=== PATIENT | male | born 1930 | race Caucasian/White ===

== ENCOUNTER 2017-08-31 16:59 | Inpatient (IN) | payer MEDICARE ==
[~2017-08-31] VITALS: Ht 188 cm; Wt 72.0 kg
[2017-08-31 18:16] VITALS: BP 111/67
--- NOTE | 2017-08-31 18:16 | NUR ---
Pt arrives via transport from [facility]. Delivered to room 202 via WC. 2:1 assist using walker to stand and pivot into bed. Pt [place], bilat hearing aids in ears. Pt reports having pain with cough and extended talking. Reports drinking ensure, any flavor, or 2 Marcus, at home. Noted to have 3rd spacing/edema to R elbow. L forearm with moderate bruising r/t lab draws prior to admit. Lungs CTA, abdomen soft, bowel sounds active x 4. Several family members at bedside with pt. Daughter, Gavi, KARLA, lives here in [place].
[2017-08-31 18:30] VITALS: BP 111/67
[2017-08-31 18:57] LABS: BUN/CREATININE RATIO 24.6 (6.0-26.0); CALCIUM 9.5 mg/dL (8.4-10.2); POTASSIUM 4.2 mmol/L (3.6-5.0); TOTAL BILIRUBIN 0.5 mg/dL (0.2-1.3); TOTAL PROTEIN 5.9 g/dL (6.3-8.2)
[2017-08-31 19:06] LABS: HEMATOCRIT 29.6 % (42.0-52.0); HEMOGLOBIN 9.7 g/dL (13.5-18.0); MEAN CELL VOLUME 96 fl (78-100); MEAN CORPUSCULAR HEMOGLOBIN 31 pg (27-31); MEAN CORPUSCULAR HGB CONC 33 g/dL (33-37); PLATELET COUNT 228 K/mm3 (130-400); RED CELL DISTRIBUTION WIDTH 15.1 % (11.5-14.5); WHITE BLOOD COUNT 7.8 K/mm3 (4.8-10.8)
[2017-08-31 19:15] LABS: MEAN PLATELET VOLUME 12.3 fl (7.4-10.4)
[2017-08-31 19:16] LABS: HYPOCHROMIA 2+; LYMPHOCYTE 13 % (20-51); MONOCYTE 12 % (3-10); NEUTROPHILS 70 % (42-75)
--- NOTE | 2017-08-31 19:45 | NUR ---
Report received from Sydnie CARRILLO. Patient resting supine in bed with HOB elevated. A/O x4. Denies pain except for throat "sore at times". Denies shortness of breath. States has productive cought of thick sputum "sometimes its yellow and sometimes its white". Assessment completed. Awaiting orders at this time. Bed alarm on. Call light in reach. Denies questions wants or needs.
--- NOTE | 2017-08-31 20:30 | NUR ---
Reviewed medications ordered with patient. Patient is very adament that he does not want to take the hospital substitution nebulizer tx for his Sybicort that he has here. Dr. Partida notified and cancels the nebulizer tx and orders the Sybicort. Patient also reports that besides having an eye gtt he gets an eye ointment at . Dr. Partida notified.
[2017-08-31 21:46] LABS: URINE APPEARANCE HAZY; URINE BILIRUBIN NEGATIVE (NEGATIVE); URINE BLOOD TRACE (NEGATIVE); URINE COLOR YELLOW; URINE GLUCOSE NEGATIVE (NEGATIVE); URINE KETONE NEGATIVE (NEGATIVE); URINE LEUKOCYTE ESTERASE 1+ (NEGATIVE); URINE NITRATE NEGATIVE (NEGATIVE); URINE PROTEIN(semi-quant) TRACE mg/dL (NEGATIVE); URINE UROBILINOGEN NORMAL (NORMAL); URINE WBC 16-30 /hpf (0-3)
[2017-09-01] MEDS ORDERED: SYMBICORT1 AE3 IH (00:11)
[2017-09-01] MEDS ORDERED: REFRESH TEARS15 ML OP (00:14)
[2017-09-01] MEDS ORDERED: ONGLYZA2.5 MG PO (00:15)
[2017-09-01] MEDS ORDERED: OMEPRAZOLE40 MG PO (00:18)
[2017-09-01] MEDS ORDERED: LOPRESSOR 225 MG/TAB PO (00:23)
[2017-09-01] MEDS ORDERED: AMIODARONE200 MG PO (00:26)
--- NOTE | 2017-09-01 00:52 | NUR ---
Rests with eyes closed. No signs of pain or distress. SCD's ordered for DVT prevention and applied earlier. Urine culture ordered, lab notified.
--- NOTE | 2017-09-01 03:34 | NUR ---
Rests with eyes closed. No signs of pain or distress.
[2017-09-01 06:12] VITALS: BP 96/54
--- NOTE | 2017-09-01 06:24 | NUR ---
Had rested well all night with no verbalization of pain. No signs of distress. Bed alarm on. Call light in reach. Call for use of urinal PRN. RESEARCH PROJECT MANAGER reports no incontinence issues.
--- NOTE | 2017-09-01 07:10 | NUR ---
Report to Julieta CARRILLO
--- NOTE | 2017-09-01 07:20 | NUR ---
Report received from Juan Collins, LUCIEN and care assumed. Pt resting in chair, no needs at this time. Call light in reach, chair alarm on.
--- NOTE | 2017-09-01 09:00 | NUR ---
Pt complains of right arm swelling that he feels is worse today then yesterday. Upon assessment, edema noted to right arm from forearm to shoulder. Educated pt on keeping arm elevated on pillows to help decrease swelling. Dr. Partida notified of pt's complaints.
[2017-09-01 10:48] VITALS: BP 107/56; BP 96/62
--- NOTE | 2017-09-01 10:50 | NUR ---
Blood pressure checked multiple times this morning and values reported to Dr. Partida. Per Dr. Partida, hold Metoprolol AM dose at this time. Pt educated on vital signs and metoprolol changes.
--- NOTE | 2017-09-01 15:43 | NUR ---
Dr. Partida in pt's room and looks at pt's right arm. Pt states he feels like it is becoming more swollen this evening. Arm continues to be elevated with no further orders at this time.
[2017-09-01 18:16] VITALS: BP 105/59
--- NOTE | 2017-09-01 19:33 | NUR ---
PATIENT LAYING SUPINE IN BED WATCHING TV. SHIFT ASSESSMENT COMPLETED AT THIS TIME. PATIENT REPORTS PAIN 4/10 IN ABDOMEN AND BELLY, STATES A FEELING OF "FULLNESS." LUNGS ARE CTA, REPORTS COUGH WITH SCANT, CLEAR PRODUCTION. PATIENT ALSO REPORTS SHORTNESS OF BREATH WHILE AT REST. COCCYX IS REDDENED, BLANCHABLE, WILL PROVIDE BARRIER CREAM FOR COMFORT AND PROTECTION FROM BREAKDOWN. BILATERAL HEELS ARE REDDENED, ELEVATED WITH A PILLOW. RIGHT ARM IS EDEMATOUS AND ELEVATED WITH A PILLOW. TELE MONITORING CONTINUED WITH A READING OF NSR. PATIENT WITH NO NEEDS AT THIS TIME, INSTRUCTED TO CALL. CALL LIGHT WITHIN REACH AND BED ALARM ON.
--- NOTE | 2017-09-01 20:05 | NUR ---
Report given to Patricia Lorenzo RN and care transferred at this time. Pt resting in bed, no needs at this time.
[2017-09-02 05:53] VITALS: BP 85/49
--- NOTE | 2017-09-02 07:00 | NUR ---
Report from GERARDO Rendon.
--- NOTE | 2017-09-02 09:00 | NUR ---
Pt up in recliner at bedside. Pt refuses shower at this time. Denies any pain. Appears discouraged this am. Remains on clear liquids w/ po pills crushed.
--- NOTE | 2017-09-02 09:44 | NUR ---
Pt given AM medcications crushed and in water. Pt drinks with straw and has several coughing episodes and coughs up some sputum. Pt aware of techniques and reports that he knows to use straw and tuck his chin. Pt continues to have diffuclty swallowing and coughs after drinks. Pt then requets his "throat spray" for sore throat.
--- NOTE | 2017-09-02 10:00 | NUR ---
Pt has large formed stool this am. Assisted w/ pericare - no redness or breakdown noted. Ambulates w/ walker w/ somewhat unsteady gait at times to return to recliner. Pt reports he will walk later. Pt agreeable to shower in the next hour after resting. "Can I shave too?" Pt seems more interactive at this time and cooperative w/ am cares. Call light in reach.
--- NOTE | 2017-09-02 11:00 | NUR ---
Shower completed - pt doing most of shower and shave - assisted by WARDROBE SPECIALIST as needed. Pt resting in bed after shower. Denies further needs. bed alarm on and call light in reach. Tolerated activity fairly well.
[2017-09-02 11:09] VITALS: BP 94/50
--- NOTE | 2017-09-02 11:09 | NUR ---
BP recheck 94/50 w/ pulse 54. Pt asymptomatic at this time.
--- NOTE | 2017-09-02 13:30 | NUR ---
Eye gtts for dryness given per pt's request.
--- NOTE | 2017-09-02 14:27 | NUR ---
Dr. Partida notified of pt's low BP/pulse this am and of holding Metoprolol - see order to hold med if Pulse <60.
--- NOTE | 2017-09-02 14:29 | NUR ---
Dr. Partida notified of pt's request for ice cream - dr bolanos w/ pt receiving ice cream. Notified also of pt coughing w/ thin liquids. Pt to continue clear liquid diet.
--- NOTE | 2017-09-02 16:44 | NUR ---
Took prilosec granules in water - no coughing or choking - tucked chin well. Not very noticeable swelling in RUE - pt reports "swelling down a lot". C/o mild sore throat - spray given per request.
[2017-09-02 17:41] VITALS: BP 107/52
--- NOTE | 2017-09-02 18:54 | NUR ---
report to GERARDO Houston.
--- NOTE | 2017-09-02 19:20 | NUR ---
Nursing rounds done with Evie Knapp RN. Pt resting in bed, bed alarm on. Pt awake and a/o x 3. C/o of sore throat.
--- NOTE | 2017-09-02 20:15 | NUR ---
Resting in bed, bed alarm on. Awake and a/o x 3. Head of bed elevated. C/o's of sore throat. Sa02 93% on room air. Heart rate 56. Continues on tele-monitor. 2012 see shift assessment
--- NOTE | 2017-09-02 21:29 | NUR ---
phenaseptic given to pt, for c/o's of sore throat. Pt rated pain around 2-3 out 10.
--- NOTE | 2017-09-02 23:00 | NUR ---
Refused oral care and HS care. Bed alarm set. Resting in bed, with eyes closed even respirations.
--- NOTE | 2017-09-03 06:00 | NUR ---
Q hourly checks done. Bed alarm set. Eyes closed even respirations. Opens eyes when spoken too. No c/o's of pain or discomfort.
[2017-09-03 06:02] VITALS: BP 105/57
--- NOTE | 2017-09-03 07:40 | NUR ---
Report given to Luz Luna. RN
--- NOTE | 2017-09-03 07:45 | NUR ---
REPORT RECEIVED FROM GERARDO REDDY
--- NOTE | 2017-09-03 07:50 | NUR ---
PATIENT SITTING UP IN RECLINER FOR BREAKFAST. SHIFT ASSESSMENT COMPLETE. PATIENT ALERT AND ORIENTED X4. REPORTS HE FEELS "SO FAR OKAY" THIS MORNING. REPORTS THAT HE DIDN'T SLEEP WELL LAST NIGHT THAT HE JUST COULDN'T GET TO SLEEP. REPORTS THAT HIS THROAT IS SORE. RATES PAIN 4-5/10 WHEN COUGHING/TALKING. ABDOMEN SOFT AND ROUNDED. STATES "I FEEL FULL ALL THE TIME" REPORTS THAT HE HAS BEEN FEELING LIKE THIS SINCE HE WAS ADMITTED TO [facility] FOR GI BLEED. REPORTS HAVING SHORTNESS OF BREATH ALL THE TIME WHICH IS HIS BASELINE. REPORTS THAT BREATHING IS IMPROVED AFTER RECEIVING MORNING INHALER. PATIENT HAS +1 EDEMA TO BILAT LOWER EXT. PATIENT'S CALL LIGHT WITHIN REACH. CHAIR ALARM ON.
--- NOTE | 2017-09-03 08:45 | NUR ---
patient's 0900 metoprolol held per instructions to hold if heart rate less than 60. heart rate 58.
[2017-09-03 08:58] LABS: HEMATOCRIT 28.1 % (42.0-52.0); HEMOGLOBIN 8.8 g/dL (13.5-18.0); MEAN CELL VOLUME 97 fl (78-100); MEAN CORPUSCULAR HEMOGLOBIN 30 pg (27-31); MEAN CORPUSCULAR HGB CONC 31 g/dL (33-37); MEAN PLATELET VOLUME 11.6 fl (7.4-10.4); PLATELET COUNT 253 K/mm3 (130-400); RED BLOOD COUNT 2.89 M/mm3 (4.20-5.60); RED CELL DISTRIBUTION WIDTH 14.9 % (11.5-14.5)
--- NOTE | 2017-09-03 09:00 | NUR ---
PATIENT SITTING UP IN RECLINER. TOOK MORNING MEDICATIONS WITHOUT DIFFICULTY. NO COUGHING OR CHOKING NOTED. PATIENT'S CALL LIGHT WITHIN REACH. CHAIR ALARM ON.
[2017-09-03 09:21] LABS: LYMPHOCYTE 19 % (20-51); MONOCYTE 6 % (3-10); NEUTROPHILS 68 % (42-75)
--- NOTE | 2017-09-03 18:29 | NUR ---
patient assisted into bed from recliner. offered ensure before bedtime. refused. educated on instructions from truck driver supervisor ashley to have 6 ensure high proteins a day and if patient is able to tolerate additional ensure to have 3 ensure clears mixed childress. patient states "that's a lot to drink, it takes me awhile to drink those anyway and i'm gonna be so full" patient encouraged to try and drink what he could. call light within reach. bed alarm on.
[2017-09-03 18:55] VITALS: BP 100/55
--- NOTE | 2017-09-03 19:00 | NUR ---
Report received from Shayne Luna RN and care assumed at this time. Pt resting in bed, requests eye drops and mouth/throat spray. No further needs. Call light in reach, bed alarm on.
--- NOTE | 2017-09-03 19:07 | NUR ---
REPORT GIVEN TO GERARDO CAMPBELL
--- NOTE | 2017-09-03 22:10 | NUR ---
Report given to Juan Collins LPN.
--- NOTE | 2017-09-03 23:04 | NUR ---
Report received from Julieta CARRILLO. Patient rests on right side with bed alarm on. Call light in reach. SCD's on BLE. No signs of pain or distress.
[2017-09-04 06:27] VITALS: BP 102/54
--- NOTE | 2017-09-04 07:26 | NUR ---
Report to Agatha CARRILLO
--- NOTE | 2017-09-04 11:01 | NUR ---
Daughter Gavi called, reports that pt has hearing test scheduled on 09/21/17 @ 1300, to finalize disability ppw. States that they will have to start all ppw over if he is unable to complete this testing. Reports that family is willing to transport. Inform daughter that therapies, admin and physicians will have to make that decision based upon pt condition.
[2017-09-04 18:00] VITALS: BP 101/45
--- NOTE | 2017-09-04 19:40 | NUR ---
Report received from Agatha Garcia RN. Nursing rounds made with Agatha CARRILLO. Resting in bed, bed alarm on. Tele-monitor on. Oxygen on 2L/NC. Denies chest pain or SOB. Denies having any pain. Has productive cough. Sputum clear.
--- NOTE | 2017-09-04 21:08 | NUR ---
Aleta Pena APRN notified of blood sugar. No new orders.
--- NOTE | 2017-09-04 21:42 | NUR ---
Pt drank regular ensure for evening snack. No difficulty noted in swallowing.
--- NOTE | 2017-09-04 23:00 | NUR ---
Continues to be resting in bed, bed alarm on. Head of bed elevated. Awake and a/o x 3. No c/o's voiced. Drank 100mls of clear ensure. Has urinal at bed side.
--- NOTE | 2017-09-05 06:05 | NUR ---
Q hourly checks done. Bed alarm set. Resting in bed. Eyes closed even respirations. At 0520 Awake and a/o x 3. Blood sugar 137. Request throat spray for sore throat, unable to rate pain.
[2017-09-05 06:24] VITALS: BP 105/55
--- NOTE | 2017-09-05 07:15 | NUR ---
Report given to Agatha Garcia RN. Nursing rounds made.
--- NOTE | 2017-09-05 07:55 | NUR ---
Amanda Rodgers PA-C at bedside.
--- NOTE | 2017-09-05 17:00 | NUR ---
Patient sitting up in the chair. Denies pain, except for a sore throat. Evening medications crushed and administered in fluid. Protonix oral suspension administered with a small bite of apple sauce per orders. Full liquid meal tray provided. Patient begins coughing shortly after taking a drink of ensure clear. Patient states "I don't know if I will be able to get anything down." "That drink didn't go down the right way." Patient continues coughing and gagging. Coughs up clearish brown foamy sputum. Denies dizziness or shortness of breath. Denies needs or questions at this time. Fall precautions in place.
--- NOTE | 2017-09-05 18:15 | NUR ---
Amanda Daniels APRN notified of patients blood pressure.
[2017-09-05 18:55] VITALS: BP 80/50
--- NOTE | 2017-09-05 19:40 | NUR ---
Report received from Agatha CARRILLO. Patient sitting up in chair. A/O x4. Denies pain. States throat is "sore" and bottom is "sore" but has no pain. Has productive cough of thick white phelgm with drinking. Lungs CTA. HR Pete. PPP +1. No edema. Denies wants or needs at this time.
--- NOTE | 2017-09-06 01:36 | NUR ---
Rests with eyes closed. No signs of pain or distress. Bed alarm on. Call light in reach.
[2017-09-06 06:40] LABS: EOS # 0.3 (0.04-0.40); HEMOGLOBIN 8.8 g/dL (13.5-18.0); LYMPH# 1.4 (1.50-4.00); MEAN CELL VOLUME 96 fl (78-100); MEAN CORPUSCULAR HEMOGLOBIN 30 pg (27-31); MEAN CORPUSCULAR HGB CONC 31 g/dL (33-37); MEAN PLATELET VOLUME 11.5 fl (7.4-10.4); MONO # 0.6 (0.20-0.80); NEU # 2.3 (1.40-6.50); PLATELET COUNT 265 K/mm3 (130-400); RED BLOOD COUNT 2.92 M/mm3 (4.20-5.60); RED CELL DISTRIBUTION WIDTH 14.8 % (11.5-14.5); WHITE BLOOD COUNT 4.7 K/mm3 (4.8-10.8)
[2017-09-06 06:44] VITALS: BP 95/55
[2017-09-06 06:49] LABS: EOS % 6.9 % (0.0-4.0)
[2017-09-06 06:55] LABS: BUN/CREATININE RATIO 27.6 (6.0-26.0); CALCIUM 9.4 mg/dL (8.4-10.2); POTASSIUM 4.2 mmol/L (3.6-5.0)
--- NOTE | 2017-09-06 07:05 | NUR ---
REPORT RECEIVED FROM ANNELISE MCGRAW.
--- NOTE | 2017-09-06 07:25 | NUR ---
Rested well all shift. Took scheduled Protonix in 5 ML of applejuice. PRN eye gtts given per request. Report to Leanne CARRILLO.
--- NOTE | 2017-09-06 08:10 | NUR ---
AWAKE. SITTING IN CHAIR. PERSNICKETY. HAS A SORETHROAT. LUNG SOUNDS CTA; SLIGHTLY DIM IN BASES. PULSE IS 56 RADIALLY; WILL HOLD METOPROLOL. LE FREE OF EDEMA. UNABLE TO PALPATE PEDAL PULSES; AUDIBLE WITH DOPLER. CALL LIGHT IN REACH.
--- NOTE | 2017-09-06 08:45 | NUR ---
TOOK MEDICATION CRUSHED IN A SMALL BITE OF PUDDING WITHOUT DIFFICULTY.
--- NOTE | 2017-09-06 13:28 | NUR ---
RULA PA AT BEDSIDE WITH PATIENT.
--- NOTE | 2017-09-06 13:36 | NUR ---
Dr Neal's office has been notified that Attending, Niecy Rodgers, is requesting a f/u appointment for consult regarding pt's ability to have a MBS as recommended per ST - awaiting response at this time. Per pt's dtr, Gavi's request, VA eligibility rep, Dakota, is contacted, who states that the VA will not cover the 20% that [facility] does not cover in SWB after day 20, as it would be 2 Federal Agencies paying and that does not happen. Pt's recent Video Swallow or MBS and ST notes are requested from [place] and request faxed to [phone].
[2017-09-06 18:19] VITALS: BP 93/73
--- NOTE | 2017-09-06 19:00 | NUR ---
Report received from Leanne CARRILLO. Patient rests supine in bed with bed alarm on. A/O x4. Denies pain, except in his throat when he coughs then rates 4/10. Continues to have intermittent productive cough of productive white thick phelgm. Denies shortness of breath. Assesssment completed. Daughter visits. Advised of patient needing more clothing. States she will be bringing more on weekend as well as another Symbicort because Father's house is an hour away and she goes to his house on weekends.
--- NOTE | 2017-09-07 05:57 | NUR ---
Rested well all shift. Denies pain. Scheduled AM medications taken. PRN eye gtts given per request. Uses urinal through the night. Denies wants or needs. Bed alarm on. Call light in reach.
[2017-09-07 06:35] VITALS: BP 95/51
--- NOTE | 2017-09-07 07:13 | NUR ---
Report to Luz CARRILLO.
--- NOTE | 2017-09-07 07:20 | NUR ---
REPORT RECEIVED FROM ANNELISE SAN LPN
--- NOTE | 2017-09-07 07:50 | NUR ---
PATIENT LYING IN BED. SHIFT ASSESSMENT COMPLETE. PATIENT ALERT AND ORIENTED X4. PATIENT REPORTS THAT NIGHT WAS "NOT TOO BAD". WHEN ASKED IF HE WAS HAVING ANY PAIN STATES "A LITTLE IN MY THROAT IT'S WORSE WHEN I COUGH AND TALK" RATES PAIN 4-5/10. PATIENT OFFERED MOUTH SPRAY REFUSED AT THIS TIME STATES THAT HE WOULD PREFER TO USE IF AFTER EATING. DENIES SHORTNESS OF BREATH OR DIFFICULTIES BREATHING. HAS +1 EDEMA TO BILAT LOWER EXT. PATIENT'S CALL LIGHT WITHIN REACH. BED ALARM ON.
--- NOTE | 2017-09-07 09:30 | NUR ---
PATIENT'S HEART RATE 68-69. BLOOD PRESSURE THIS MORNING 95/51. PER CHRISTINE STILES PATIENT TO RECEIVE SCHEDULED METOPROLOL 12.5 MG.
[2017-09-07 11:45] LABS: PH-URINE 5.5 (5.0 - 8.0); URINE APPEARANCE CLEAR; URINE BILIRUBIN NEGATIVE (NEGATIVE); URINE BLOOD NEGATIVE (NEGATIVE); URINE COLOR YELLOW; URINE GLUCOSE NEGATIVE (NEGATIVE); URINE KETONE NEGATIVE (NEGATIVE); URINE LEUKOCYTE ESTERASE NEGATIVE (NEGATIVE); URINE NITRATE NEGATIVE (NEGATIVE); URINE PROTEIN(semi-quant) NEGATIVE (NEGATIVE); URINE UROBILINOGEN NORMAL (NORMAL); URINE WBC 0-1 /hpf (0-3)
--- NOTE | 2017-09-07 11:51 | NUR ---
MBS and ST notes obtained from 08-16-17, placed on pt chart and scanned and sent to Niecy Rodgers PA-C and [facility]. Dr Neal's nurse Elida returns call and states that she is not sure if Dr Neal will recommend a MBS or not and will check w/ him when he is back in the office on Sunday09-10-17. Niecy and Jeimy notified.
--- NOTE | 2017-09-07 17:26 | NUR ---
PATIENT TO HAVE NECTAR THICKENED LIQUIDS. RECEIVED CHICKEN BROTH ON DINNER TRAY. THIS NURSE ASKED PATIENT IF THE BROTH COULD BE THICKENED LIKE HIS WATER. PATIENT STATES " I HAVE A HARDER TIME SWALLOWING IT WHEN IT'S TOO THICK, I DON'T LIKE IT LIKE THAT IT DOESN'T CLINCH MY THIRST" PATIENT REFUSED TO THICKEN BROTH.
[2017-09-07 18:35] VITALS: BP 111/59
--- NOTE | 2017-09-07 19:10 | NUR ---
Report received from Ashley Velazco nursing staff development coordinator.
--- NOTE | 2017-09-07 19:17 | NUR ---
REPORT GIVEN TO GERARDO REDDY
--- NOTE | 2017-09-07 19:30 | NUR ---
Awake and a/o x 3. Resting in recliner with chair alarm on. Denies having any SOB, chest pain. States "my throat hurts when I speak or cough." Rated throat pain 4-5 out 10. See shift assessment.
--- NOTE | 2017-09-07 22:00 | NUR ---
Resting in bed, bed alarm set. Awake and a/o x 3, watching TV. Denies having any needs. No c/o's of pain voiced.
--- NOTE | 2017-09-08 00:17 | NUR ---
C/o of throat hurting. Requested throat spray. Given at this time. Unable to rate pain. States "its just sore."
[2017-09-08 06:02] VITALS: BP 103/55
--- NOTE | 2017-09-08 06:25 | NUR ---
Q hourly checks done. Bed alarm set. Call light with in reach of patient. Eyes have been closed even respirations. At 0600 pt awake and a/o x 3. C/o's of throat pain.
--- NOTE | 2017-09-08 07:32 | NUR ---
Report given to Sydnie Hernandez RN
--- NOTE | 2017-09-08 08:47 | NUR ---
Pt A&O, denies pain. Ate all pudding and yogurt off breakfast tray and is drinking 2CalHN at this time. Crushed and mixed PO meds with applesauce. Pt swallowed without difficulty.
[2017-09-08 18:42] VITALS: BP 119/76
[2017-09-09 06:32] VITALS: BP 109/62
--- NOTE | 2017-09-09 07:15 | NUR ---
report from Olga Lidia CARRILLO
--- NOTE | 2017-09-09 08:15 | NUR ---
up in chair at [facility], denies complaint, takes po meds crushed in applesauce without difficulty, talkative
[2017-09-09 18:16] VITALS: BP 111/66
--- NOTE | 2017-09-09 18:31 | NUR ---
patient currently in chair at bedside, twice today this patient has had difficulty with chocolate pudding, coughing and spitting a large amount, plan to stop giving chocolate pudding.
--- NOTE | 2017-09-09 19:17 | NUR ---
report to Nunu CARRILLO
--- NOTE | 2017-09-09 20:50 | NUR ---
PATIENT LAYING SUPINE IN BED. SHIFT ASSESSMENT COMPLETED AT THIS TIME. PATIENT A/O X4. RATING PAIN 3/10 IN STOMACH AND THROAT. LUNGS CTA, DENIES COUGH OR SHORTNESS OF BREATH. NO EDEMA NOTED. HEART RATE 58 BPM, METOPROLOL HELD. PATIENT REFUSES TO TAKE HIS COLACE WITH THIS MEDICATION PASS. PATIENT REQUESTING "SLEEPING PILL," HYDROXYZINE HCL, EYE OINTMENT, AND THROAT SPRAY LATER ON THIS EVENING. PATIENT WITH NO NEEDS AT THIS TIME. WILL CONTINUE TO MONITOR. CALL LIGHT WITHIN REACH AND BED ALARM ON.
[2017-09-10 06:21] VITALS: BP 101/59
--- NOTE | 2017-09-10 06:45 | NUR ---
Received report from GERARDO Eddy
--- NOTE | 2017-09-10 09:42 | NUR ---
Patient laying in bed when this nurse entered room. Alert and oriented to person, place and time. Patient is tolerable to this nurse during assessment. BLCTA uin upper, middle and lower lobes anterior and posterior. Bowel sounds noted in all four quadrants. No pain with deep and soft palpation. No massess or gaurding noted. Abdomen is soft and flat. Skin is warm, intact with no lessions noted. Coccyx does have blanchable, reddened area that is intact. Patient turned on right side while laying in bed. Bruising in bilateral hands that are in varying stages of healing. Patient continues on full liquid diet. BS 139 this morning. Will apply air mattress to bed. No lower edema noted. Patient is able to voice needs and denies pain at this time. Call light with in reach. Will continue to monitor.
--- NOTE | 2017-09-10 17:03 | NUR ---
Patient sitting in recliner at bedside waiting for supper. 1700 meds passed. Patient is able to voice his needs and call light with in reach. Will continue to monitor.
[2017-09-10 18:01] VITALS: BP 115/69
--- NOTE | 2017-09-10 18:17 | NUR ---
Dr Staton is notified that Dr Neal's nurse, Elida, has notified Dr Neal of recommendation re: repeat MBS, she states that Dr Neal says, it wouldn't hurt him, but he doesn't think he needs it and he has requested that his nurse discuss w/ family and pt and set him up with [facility] for esophageal stent placement. Elida will get back w/ [facility] re decision made and [facility] appointment is that is agreed upon. Dr Staton is also aware that this nurse discussed w/ family the possiblity of a family meeting and Gavi, dtr, cannot meet until after 4:30pm - she suggests a conference call if necessary. She will speak to pt about the possibility of needing LTC and she states she and her sister would prefer [facility] as they would be able to see pt more often.
--- NOTE | 2017-09-10 18:20 | NUR ---
all notes and other documentation reviewed that were entered by Sherrie student life coordinator
--- NOTE | 2017-09-10 18:36 | NUR ---
Report given to LUCIEN Jane.
--- NOTE | 2017-09-10 19:10 | NUR ---
Report received from Ashley CARRILLO. Patient sitting up in recliner. A/O x4. Denies pain except to throat when swallows, then 2/10. Reports still has cought at times with swallowing. Continues on nectar thick liquids. Assessment completed. Denies wants or needs. Reports having loose BM's. "from the applesauce they are giving me". Call light in reach.
--- NOTE | 2017-09-11 00:28 | NUR ---
Rings call light and requests eye lubricant, throat spray, and "sleep medication" Meclinzine. Requests granted. Denies pain except in throat 11/17. Remains a 2 hours turn. Denies further wants or needs. Telling jokes with this nurse. Bed alarm on. Call light in reach.
--- NOTE | 2017-09-11 06:38 | NUR ---
Rested well all night. Scheduled AM medication taken. PRN eye gtts given per request. Denies pain. Voids 150 ML of clear yellow urine in urinal. Bed alarm on. Call light in reach.
[2017-09-11 06:42] VITALS: BP 98/54
--- NOTE | 2017-09-11 06:45 | NUR ---
Received report from LUCIEN Jane.
--- NOTE | 2017-09-11 07:08 | NUR ---
Report to Ashley CARRILLO
--- NOTE | 2017-09-11 08:45 | NUR ---
PATIENT PROVIDED PEACHES ON BREAKFAST TRAY. PATIENT BEGAN COUGHING AND SPITTING UP AFTER EATING PEACHES. REPORTS THAT IT WAS THE PEACHES THAT CAUSED HIM TO START COUGHING AND SPITTING UP. REPORTS THAT THE PEACHES WERE STUCK. DOES NOT APPEAR TO BE IN ANY DISTRESS. DENIES ANY NEEDS FROM THE NURSE AT THIS TIME. STATES "I JUST NEED TO GET THIS CLEARED" PEACHES TAKEN FROM PATIENT.
[2017-09-11 09:17] LABS: EOS # 0.3 (0.04-0.40); EOS % 6.3 % (0.0-4.0); HEMATOCRIT 31.1 % (42.0-52.0); HEMOGLOBIN 9.6 g/dL (13.5-18.0); LYMPH# 1.2 (1.50-4.00); MEAN CELL VOLUME 99 fl (78-100); MEAN CORPUSCULAR HEMOGLOBIN 31 pg (27-31); MEAN CORPUSCULAR HGB CONC 31 g/dL (33-37); MONO # 0.6 (0.20-0.80); NEU # 3.2 (1.40-6.50); PLATELET COUNT 319 K/mm3 (130-400); RED BLOOD COUNT 3.14 M/mm3 (4.20-5.60); RED CELL DISTRIBUTION WIDTH 15.5 % (11.5-14.5); WHITE BLOOD COUNT 5.4 K/mm3 (4.8-10.8)
[2017-09-11 09:22] LABS: CALCIUM 9.3 mg/dL (8.4-10.2); POTASSIUM 4.7 mmol/L (3.6-5.0)
--- NOTE | 2017-09-11 09:30 | NUR ---
Patient refused Colace and Metoporol held this morning d/t pulse 58.
--- NOTE | 2017-09-11 10:10 | NUR ---
susan salcedo in with patient at this time.
--- NOTE | 2017-09-11 10:13 | NUR ---
Patient sitting in recliner chair when this nurse entered room. Patient is alert and oriented to person, place and time. Open to this nurse doing the assessment. BLCTA anterior and posterior. No pain with deep or soft palpation of the abdomen. No massess or gaurding noted. Bowel sounds noted in all four quadrants. Patient continues on a fluid diet. Patient was given peaches this morning during breakfast and did not tolerate this well. Pain of 2 on a scale of 0-10 on the nuemeric pain scale. Patient stated he has pain in his throat and only when he coughs. Skin in intact, dry and warm to touch. Pale in color. Discolored coccyx intact and is blancable. Pedal pulse present bilatearlly.
--- NOTE | 2017-09-11 10:30 | NUR ---
patient sitting up in recliner. patient reports that after having peaches this morning that he has not been able to swallow anything. patient reports that he has been spitting up everything. patient has cup that is half full of liquids he has spit up. patient reports that he's not throwing up but that he's more coughing up the liquids. when asked if he feels like he has something stuck in his throat or what is bothering him. patient points to epigastric area and states "i just feels like it's all stuck in there" patient denies shortness of breath or difficulties breathing. respirations even and unlabored. sp02 98% on room air. informed patient not to have anymore pudding or yogurt or peaches. kitchen called and notified.
--- NOTE | 2017-09-11 10:48 | NUR ---
susan salcedo in with patient at this time.
--- NOTE | 2017-09-11 12:30 | NUR ---
PATIENT GIVEN 2 OZ OF COCA PER CHRISTINE STILES'S ORDER. PATIENT REPORTS THAT HE FEELS THOUGH COKE HAS THINNED HIS SECRETIONS AND REPORTS THAT HE SPIT UP A COUPLE PIECES OF PEACH. PATIENT PROVDED AN ADDITIONAL 2 OZ COKE PER ORDER FROM CHRISTINE STILES. PATIENT TOLERATED WELL CONTINUES TO SPIT UP AFTER FLUID INTAKE BUT SEEMS TO BE DECREASING IN FREQUENCY AND AMOUNT.
--- NOTE | 2017-09-11 13:10 | NUR ---
PATIENT PROVIDED ADDITIONAL 2 OZ OF COKE PER ORDER. PATIENT REPORTS FEELING LIKE COKE HAS HELPED RELIEVE A LITTLE BIT OF ABDOMINAL PRESSURE. REPORTS THAT HE IS STILL FEELING A SMALL AMOUNT OF DISCOMFORT STATES "I JUST HAVE THIS GAS" REPORTS THAT HE FEELS LIKE COKE HAS HELPED THIN HIS SECRETIONS. THIS NURSE AND CHRISTINE STILES AT PATIENT'S BEDSIDE. PATIENT TOLERATED DRINKING WELL COUGHED A LITTLE AFTER DRINKING AND SPIT UP ONCE AFTER DRINKING 2OZ. CHRISTINE STILES ENCOURAGED PATIENT TO WALK IN HALLS. PATIENT REPORTS WANTING TO WAIT UNTIL THERAPY CAN WALK WITH HIM. PATIENT REQUESTED SPRITE. PER CHRISTINE STILES OKAY FOR PATIENT TO HAVE SPRITE.
--- NOTE | 2017-09-11 13:11 | NUR ---
Patient left facility at 1310 with all belongings via wheelchair to personal vehicle with .
--- NOTE | 2017-09-11 13:35 | NUR ---
PATIENT WALKING IN [place] WITH PHYSICAL THERAPY. MARY FROM THERAPY CALLED TO THIS NURSE FOR VITAL SIGNS MACHINE. PATIENT SITTING IN CHAIR IN HALLWAY. REPORTS THAT PATIENT WAS SPITTING UP LIQUIDS. MARY FROM PT REPORTS PATIENT'S HEART RATE WAS 136 AND SP02 82%. WHEN THIS NURSE ARRIVED TO PATIENT HEART RATE WAS 107 SP02 85%. RESPIRATIONS UNLABORED. DID NOT APPEAR TO BE IN ANY DISTRESS. PATIENT'S SP02 BACK UP TO 95% ON ROOM AIR AFTER APPROXIMATELY 1-2 MINUTES. PATIENT ESCORTED INTO WHEELCHAIR. ASSISTED BACK INTO BED WITH HEAD OF BED ELEVATED. SPO2 96% ON ROOM AIR ONCE IN BED HEART RATE 65. PATIENT REPORTS THAT HE DID FEEL SHORT OF BREATH WHILE WALKING. DENIES ANY DIZZINESS. PATIENT'S CALL LIGHT WITHIN REACH. BED ALARM ON. CHRISTINE STILES NOTIFIED.
[2017-09-11 13:40] VITALS: BP 110/64
--- NOTE | 2017-09-11 13:55 | NUR ---
CHRISTINE Pemberton at bedside at 1354.
--- NOTE | 2017-09-11 14:03 | NUR ---
Patient did not take Promode 30ml at 1400 d/t nausea.
--- NOTE | 2017-09-11 15:00 | NUR ---
Patient resting in bed in high fowlers position with IV on continous in the right forearm. Patient is able to voice needs and states that he wants to rest. Call light with in reach and will continue to monitor
--- NOTE | 2017-09-11 15:06 | NUR ---
PATIENT LYING IN BED EYES CLOSED WITH HEAD OF BED ELEVATED TO 35 DEGREES. PATIENT DOES NOT APPEAR TO BE IN ANY DISTRESS. NO COUGHING HEARD FROM ROOM FOR THE ROOM FOR APPROXIMATELY THE LAST HOUR. VITAL SIGNS WITHIN NORMAL LIMITS. CALL LIGHT WITHIN REACH. BED ALARM ON.
[2017-09-11 15:08] VITALS: BP 109/64
--- NOTE | 2017-09-11 16:45 | NUR ---
CHRISTINE Pemberton at bedside visiting with patient.
--- NOTE | 2017-09-11 16:49 | NUR ---
SPOKE WITH PATIENT'S DAUGHTER JEANNE. NOTIFIED OF [facility]S [facility]SF[facility]. DAUGHTER WILL TRY TO MAKE IT UP TO HOSPITAL PRIOR TO TRANSFER.
--- NOTE | 2017-09-11 16:58 | NUR ---
SPOKE WITH [facility] PT [facility]TER AT THIS TIME. PATIENT GOING TO ROOM 219 ICU ACCEPTING DOCTOR IS . NUMBER TO CALL REPORT [phone].
--- NOTE | 2017-09-11 17:15 | NUR ---
PATIENT'S CONSENT FOR TRANSFER SIGNED AT THIS TIME. THIS NURSE, PATIENT'S DAUGHTER JEANNE AND GERARDO FRY IN ROOM AT TIME OF CONSENT.
--- NOTE | 2017-09-11 17:17 | NUR ---
SPOKE WITH JOSHUA FROM EMS TO NOTIFY OF PATIENT'S TRANSFER AT THIS TIME.
[2017-09-11 17:19] VITALS: BP 107/58
--- NOTE | 2017-09-11 17:47 | NUR ---
PATIENT LEFT FACILITY VIA EMS FOR TRANSFER TO [facility] ICU ROOM 219. PATIENT'S CLOTHING AND WALLET SENT WITH DAUGHTER. TRANSFER PAPERS SENT WITH EMS.
--- NOTE | 2017-09-11 17:49 | NUR ---
REPORT GIVEN TO GERARDO GUARDADO AT [facility]. DENIES ANY QUESTIONS FOR THE NURSE AT THIS TIME. PATIENT'S HISTORY AND PHYSICAL AND MEDICATION LIST FAXED PER REQUEST.
[2017-10-04] MEDS ORDERED: FERROUS SU325 MG/TAB PO (14:14)
[2017-10-04] MEDS ORDERED: LEVEMIR FLEX100 U/ML SQ (14:17)
[2017-10-04] MEDS ORDERED: MEGESTROL AC40 MG/ML PO (14:18)
== END 2017-10-05 13:01 | disposition home health service (06) | DRG 948 ==
LOC: MED/SURG 16:59
PROVIDERS: Nurse Practitioner Family; Physician Assistant; ADMIT Family Medicine
DX: R53.81 Other malaise (principal); N39.0 Urinary tract infection, site not specified; E46 Unspecified protein-calorie malnutrition; N17.9 Acute kidney failure, unspecified; I13.0 Hypertensive heart and chronic kidney disease with heart failure and stage 1 through stage 4 chronic kidney disease, or unspecified chronic kidney disease; I50.9 Heart failure, unspecified; T18.128A Food in esophagus causing other injury, initial encounter; J44.9 Chronic obstructive pulmonary disease, unspecified; E03.9 Hypothyroidism, unspecified; E11.22 Type 2 diabetes mellitus with diabetic chronic kidney disease; N18.9 Chronic kidney disease, unspecified; I48.0 Paroxysmal atrial fibrillation; B96.4 Proteus (mirabilis) (morganii) as the cause of diseases classified elsewhere; K22.2 Esophageal obstruction; W88.1XXA Exposure to radioactive isotopes, initial encounter; H04.123 Dry eye syndrome of bilateral lacrimal glands; D64.9 Anemia, unspecified; Z68.21 Body mass index [BMI] 21.0-21.9, adult
CPT/HCPCS: C9113; J1815; J7120; Q0177

== ENCOUNTER 2017-09-12 12:18 | Inpatient (IN) | payer MEDICARE ==
[~2017-09-12] VITALS: Ht 188 cm; Wt 73.6 kg
[~2017-09-12 12:18] MED LIST: AMIODARONE200 MG PO; LOPRESSOR 225 MG/TAB PO; OMEPRAZOLE40 MG PO; ONGLYZA2.5 MG PO; REFRESH TEARS15 ML OP; SYMBICORT1 AE3 IH
[2017-09-12 17:27] VITALS: BP 102/63
[2017-09-13 06:21] VITALS: BP 106/58
[2017-09-13 19:00] VITALS: BP 106/63
[2017-09-14 06:28] VITALS: BP 99/56
[2017-09-14 18:15] VITALS: BP 101/57
[2017-09-15 06:23] VITALS: BP 105/57
[2017-09-15 18:02] VITALS: BP 110/58
[2017-09-16 06:32] VITALS: BP 109/63
[2017-09-16 18:05] VITALS: BP 115/67
[2017-09-17 06:28] VITALS: BP 121/64
[2017-09-17 18:48] VITALS: BP 109/67
[2017-09-18 06:37] VITALS: BP 116/58
== END 2017-09-18 07:10 | disposition home or self-care (01) | DRG 947 ==
LOC: MED/SURG 12:18
PROVIDERS: ADMIT Physician Assistant
DX: R53.81 Other malaise (principal); E43 Unspecified severe protein-calorie malnutrition; Z68.1 Body mass index [BMI] 19.9 or less, adult; I50.32 Chronic diastolic (congestive) heart failure; Z66 Do not resuscitate; J44.9 Chronic obstructive pulmonary disease, unspecified; E11.9 Type 2 diabetes mellitus without complications; K22.2 Esophageal obstruction; N18.9 Chronic kidney disease, unspecified; R19.7 Diarrhea, unspecified; W88.1XXS Exposure to radioactive isotopes, sequela
CPT/HCPCS: C9113; J7120; Q0177

== ENCOUNTER 2017-09-18 16:10 | Inpatient (IN) | payer MEDICARE ==
[~2017-09-18] VITALS: Ht 188 cm; Wt 75.7 kg
[2017-09-18 16:55] VITALS: BP 144/87
[2017-09-18 17:38] VITALS: BP 144/87
[2017-09-18 18:45] VITALS: BP 144/87
[2017-09-18 19:40] LABS: URINE APPEARANCE CLEAR; URINE BILIRUBIN NEGATIVE (NEGATIVE); URINE BLOOD NEGATIVE (NEGATIVE); URINE COLOR YELLOW; URINE GLUCOSE NEGATIVE (NEGATIVE); URINE KETONE NEGATIVE (NEGATIVE); URINE LEUKOCYTE ESTERASE NEGATIVE (NEGATIVE); URINE NITRATE NEGATIVE (NEGATIVE); URINE PROTEIN(semi-quant) TRACE mg/dL (NEGATIVE); URINE UROBILINOGEN NORMAL (NORMAL); URINE WBC 0-1 /hpf (0-3)
[2017-09-18 19:52] LABS: HEMATOCRIT 31.6 % (42.0-52.0); MEAN CELL VOLUME 99 fl (78-100); MEAN CORPUSCULAR HEMOGLOBIN 31 pg (27-31); RED BLOOD COUNT 3.19 M/mm3 (4.20-5.60); WHITE BLOOD COUNT 6.5 K/mm3 (4.8-10.8)
[2017-09-18 19:53] LABS: EOS % 2.6 % (0.0-4.0); MEAN CORPUSCULAR HGB CONC 32 g/dL (33-37); MEAN PLATELET VOLUME 11.6 fl (7.4-10.4); PLATELET COUNT 206 K/mm3 (130-400); RED CELL DISTRIBUTION WIDTH 15.3 % (11.5-14.5)
[2017-09-18 19:54] LABS: EOS # 0.2 (0.04-0.40); LYMPH# 0.9 (1.50-4.00); MONO # 0.6 (0.20-0.80); NEU # 4.8 (1.40-6.50)
[2017-09-18 19:57] LABS: BUN/CREATININE RATIO 28.4 (6.0-26.0); CALCIUM 9.1 mg/dL (8.4-10.2); POTASSIUM 4.7 mmol/L (3.6-5.0); TOTAL PROTEIN 6.1 g/dL (6.3-8.2)
[2017-09-18 19:58] LABS: ALBUMIN 3.3 g/dL (3.5-5.0); TOTAL BILIRUBIN 0.6 mg/dL (0.2-1.3)
[2017-09-19 06:32] VITALS: BP 116/74
[2017-09-19 18:44] VITALS: BP 122/74
[2017-09-20 06:20] VITALS: BP 125/79
[2017-09-20 18:15] VITALS: BP 110/66
[2017-09-21 06:23] VITALS: BP 123/82
[2017-09-21 06:44] LABS: EOS # 0.2 (0.04-0.40); EOS % 2.1 % (0.0-4.0); HEMATOCRIT 29.4 % (42.0-52.0); HEMOGLOBIN 9.2 g/dL (13.5-18.0); LYMPH# 1.1 (1.50-4.00); MEAN CELL VOLUME 99 fl (78-100); MEAN CORPUSCULAR HEMOGLOBIN 31 pg (27-31); MEAN CORPUSCULAR HGB CONC 31 g/dL (33-37); MEAN PLATELET VOLUME 11.5 fl (7.4-10.4); MONO # 0.9 (0.20-0.80); NEU # 5.3 (1.40-6.50); PLATELET COUNT 189 K/mm3 (130-400); RED BLOOD COUNT 2.98 M/mm3 (4.20-5.60); RED CELL DISTRIBUTION WIDTH 15.3 % (11.5-14.5); WHITE BLOOD COUNT 7.5 K/mm3 (4.8-10.8)
[2017-09-21 07:13] LABS: BUN/CREATININE RATIO 31.9 (6.0-26.0); CALCIUM 8.9 mg/dL (8.4-10.2); POTASSIUM 4.2 mmol/L (3.6-5.0)
[2017-09-21 17:46] VITALS: BP 117/73
[2017-09-22 06:31] VITALS: BP 131/77
[2017-09-22 18:34] VITALS: BP 122/78
[2017-09-23 06:18] VITALS: BP 130/83
[2017-09-23 18:13] VITALS: BP 125/81
[2017-09-24 06:18] VITALS: BP 125/78
[2017-09-24 07:49] LABS: CALCIUM 9.3 mg/dL (8.4-10.2); POTASSIUM 4.4 mmol/L (3.6-5.0)
[2017-09-24 07:51] LABS: HEMATOCRIT 30.6 % (42.0-52.0); HEMOGLOBIN 9.7 g/dL (13.5-18.0); MEAN CELL VOLUME 98 fl (78-100); MEAN CORPUSCULAR HEMOGLOBIN 31 pg (27-31); MEAN CORPUSCULAR HGB CONC 32 g/dL (33-37); MEAN PLATELET VOLUME 11.8 fl (7.4-10.4); PLATELET COUNT 173 K/mm3 (130-400); RED BLOOD COUNT 3.14 M/mm3 (4.20-5.60); RED CELL DISTRIBUTION WIDTH 14.9 % (11.5-14.5); WHITE BLOOD COUNT 5.9 K/mm3 (4.8-10.8)
[2017-09-24 08:29] LABS: LYMPHOCYTE 28 % (20-51); MONOCYTE 10 % (3-10); NEUTROPHILS 56 % (42-75)
[2017-09-24 17:58] VITALS: BP 121/78
[2017-09-25 06:30] VITALS: BP 125/83
[2017-09-25 18:19] VITALS: BP 113/76
[2017-09-26 06:23] VITALS: BP 135/81
[2017-09-26 18:59] VITALS: BP 114/67
[2017-09-27 07:00] VITALS: BP 130/80
[2017-09-27 18:49] VITALS: BP 112/72
[2017-09-28 06:01] VITALS: BP 121/69
[2017-09-28 18:41] VITALS: BP 111/73
[2017-09-29 06:59] VITALS: BP 124/78
[2017-09-29 18:21] VITALS: BP 126/76
[2017-09-30 06:39] VITALS: BP 133/86
[2017-09-30 18:11] VITALS: BP 109/68
[2017-10-01 06:25] VITALS: BP 140/81
[2017-10-01 18:38] VITALS: BP 109/74
[2017-10-02 06:31] VITALS: BP 122/76
[2017-10-02 10:56] LABS: EOS # 0.2 (0.04-0.40); EOS % 3.3 % (0.0-4.0); HEMATOCRIT 31.5 % (42.0-52.0); HEMOGLOBIN 9.9 g/dL (13.5-18.0); LYMPH# 1.1 (1.50-4.00); MEAN CELL VOLUME 98 fl (78-100); MEAN CORPUSCULAR HEMOGLOBIN 31 pg (27-31); MEAN CORPUSCULAR HGB CONC 31 g/dL (33-37); MEAN PLATELET VOLUME 11.3 fl (7.4-10.4); MONO # 0.7 (0.20-0.80); PLATELET COUNT 262 K/mm3 (130-400); RED BLOOD COUNT 3.22 M/mm3 (4.20-5.60); RED CELL DISTRIBUTION WIDTH 15.1 % (11.5-14.5); WHITE BLOOD COUNT 7.2 K/mm3 (4.8-10.8)
[2017-10-02 11:11] LABS: BUN/CREATININE RATIO 36.6 (6.0-26.0); CALCIUM 9.2 mg/dL (8.4-10.2); POTASSIUM 4.5 mmol/L (3.6-5.0); TOTAL BILIRUBIN 0.4 mg/dL (0.2-1.3); TOTAL PROTEIN 5.8 g/dL (6.3-8.2)
[2017-10-02 18:48] VITALS: BP 120/76
[2017-10-03 06:23] VITALS: BP 126/82
[2017-10-03 18:21] VITALS: BP 130/76
[2017-10-04 06:42] VITALS: BP 135/83
[2017-10-04] MEDS ORDERED: FERROUS SU325 MG/TAB PO (14:14)
[2017-10-04] MEDS ORDERED: LEVEMIR FLEX100 U/ML SQ (14:17)
[2017-10-04] MEDS ORDERED: MEGESTROL AC40 MG/ML PO (14:18)
[2017-10-04 17:58] VITALS: BP 128/78
[2017-10-05 06:24] VITALS: BP 131/81
== END 2017-10-05 13:01 | disposition home health service (06) | DRG 947 ==
LOC: MED/SURG 16:10
PROVIDERS: Physician Assistant; ADMIT Physician Assistant
DX: R53.81 Other malaise (principal); E43 Unspecified severe protein-calorie malnutrition; Z68.1 Body mass index [BMI] 19.9 or less, adult; E46 Unspecified protein-calorie malnutrition; I50.32 Chronic diastolic (congestive) heart failure; Z66 Do not resuscitate; K22.2 Esophageal obstruction; W88.1XXA Exposure to radioactive isotopes, initial encounter; E11.9 Type 2 diabetes mellitus without complications; J44.9 Chronic obstructive pulmonary disease, unspecified; Z88.0 Allergy status to penicillin; Z85.72 Personal history of non-Hodgkin lymphomas; R62.7 Adult failure to thrive
CPT/HCPCS: J1815; Q0177

== ENCOUNTER → 2018-01-19 | Outpatient (CLI) | payer MEDICARE ==
[~2018-01-19] MED LIST changes: +FERROUS SU325 MG/TAB PO; +LEVEMIR FLEX100 U/ML SQ; +MEGESTROL AC40 MG/ML PO
[2018-01-19 14:58] LABS: URINE APPEARANCE CLEAR; URINE BILIRUBIN NEGATIVE (NEGATIVE); URINE BLOOD NEGATIVE (NEGATIVE); URINE COLOR YELLOW; URINE GLUCOSE NEGATIVE (NEGATIVE); URINE KETONE NEGATIVE (NEGATIVE); URINE LEUKOCYTE ESTERASE NEGATIVE (NEGATIVE); URINE NITRATE NEGATIVE (NEGATIVE); URINE PROTEIN(semi-quant) NEGATIVE (NEGATIVE); URINE UROBILINOGEN NORMAL (NORMAL); URINE WBC 0-1 /hpf (0-3)
== END ==
LOC: LAB 13:40
PROVIDERS: Internal Medicine
DX: R10.9 Unspecified abdominal pain (principal)

== ENCOUNTER → 2018-01-23 | Outpatient (CLI) | payer MEDICARE ==
[2018-01-23 17:58] LABS: HEMATOCRIT 29.9 % (42.0-52.0); HEMOGLOBIN 9.2 g/dL (13.5-18.0); MEAN PLATELET VOLUME 11.3 fl (7.4-10.4); RED BLOOD COUNT 3.06 M/mm3 (4.20-5.60); RED CELL DISTRIBUTION WIDTH 14.7 % (11.5-14.5); WHITE BLOOD COUNT 5.7 K/mm3 (4.8-10.8)
[2018-01-23 18:05] LABS: BUN/CREATININE RATIO 24.9 (6.0-26.0); CALCIUM 8.8 mg/dL (8.4-10.2); POTASSIUM 4.4 mmol/L (3.6-5.0)
== END ==
LOC: LAB 17:35
PROVIDERS: Family Medicine
DX: R41.0 Disorientation, unspecified (principal)

== ENCOUNTER 2018-03-12 19:07 | Emergency (ER) | payer MEDICARE ==
[2018-03-12 21:11] LABS: HEMATOCRIT 39.3 % (42.0-52.0); HEMOGLOBIN 12.6 g/dL (13.5-18.0); MEAN CELL VOLUME 96 fl (78-100); MEAN CORPUSCULAR HEMOGLOBIN 31 pg (27-31); MEAN CORPUSCULAR HGB CONC 32 g/dL (33-37); MEAN PLATELET VOLUME 11.3 fl (7.4-10.4); PLATELET COUNT 215 K/mm3 (130-400); RED BLOOD COUNT 4.08 M/mm3 (4.20-5.60); RED CELL DISTRIBUTION WIDTH 17.1 % (11.5-14.5); WHITE BLOOD COUNT 11.9 K/mm3 (4.8-10.8)
[2018-03-12 21:18] LABS: ALBUMIN 3.7 g/dL (3.5-5.0); BUN/CREATININE RATIO 28.3 (6.0-26.0); POTASSIUM 4.1 mmol/L (3.6-5.0); TOTAL BILIRUBIN 0.6 mg/dL (0.2-1.3); TOTAL PROTEIN 7.5 g/dL (6.3-8.2)
[2018-03-12 21:29] LABS: URINE APPEARANCE CLEAR; URINE COLOR YELLOW
[2018-03-12 21:39] LABS: URINE BILIRUBIN NEGATIVE (NEGATIVE); URINE BLOOD NEGATIVE (NEGATIVE); URINE GLUCOSE NEGATIVE (NEGATIVE); URINE KETONE NEGATIVE (NEGATIVE); URINE NITRATE NEGATIVE (NEGATIVE); URINE PROTEIN(semi-quant) 1+ mg/dL (NEGATIVE); URINE UROBILINOGEN NORMAL (NORMAL)
[2018-03-12 21:40] LABS: URINE LEUKOCYTE ESTERASE NEGATIVE (NEGATIVE); URINE WBC 0-1 /hpf (0-3)
[2018-03-12 21:46] LABS: BAND 3 % (0-10); LYMPHOCYTE 5 % (20-51); MONOCYTE 4 % (3-10); NEUTROPHILS 86 % (42-75)
[2018-03-12] MEDS ORDERED: ZYLOPRIM 100MG100 MG PO (23:25)
[2018-03-12] MEDS ORDERED: ARTIFICIAL TEA1 EACH OP (23:26)
[2018-03-12] MEDS ORDERED: BISCOLAX10 M1 RC (23:26)
[2018-03-12] MEDS ORDERED: VITAMIN D 1001000 IU PO (23:27)
[2018-03-12] MEDS ORDERED: COMPAZINE RC ×2 (23:27→23:28)
[2018-03-12] MEDS ORDERED: DESENEX2% TOP (23:29)
[2018-03-12] MEDS ORDERED: VITAMIN B-12250 MCG PO (23:29)
[2018-03-12] MEDS ORDERED: INSULIN HUMA100 U/ML SQ (23:33)
[2018-03-12] MEDS ORDERED: COLACE100 M1 PO (23:33)
[2018-03-12] MEDS ORDERED: IMODIUM A-D2 M2 PO (23:42)
[2018-03-13] MEDS ORDERED: LEVAQUIN 750MG750 M1 PO (00:03)
[2018-03-13] MEDS ORDERED: ZOFRAN ODT8 M1 PO (00:03)
[2018-03-13 00:26] VITALS: BP 136/92
== END 2018-03-13 00:26 ==
LOC: ED 19:07
PROVIDERS: Nurse Practitioner Family
DX: J44.0 Chronic obstructive pulmonary disease with (acute) lower respiratory infection (principal); J18.9 Pneumonia, unspecified organism; J44.1 Chronic obstructive pulmonary disease with (acute) exacerbation; E86.0 Dehydration; R10.84 Generalized abdominal pain; E11.9 Type 2 diabetes mellitus without complications; Z87.19 Personal history of other diseases of the digestive system; I50.9 Heart failure, unspecified; Z79.4 Long term (current) use of insulin; K21.9 Gastro-esophageal reflux disease without esophagitis; Z90.49 Acquired absence of other specified parts of digestive tract; R11.2 Nausea with vomiting, unspecified; H10.9 Unspecified conjunctivitis; Z51.5 Encounter for palliative care
CPT/HCPCS: J0696; J2405; J7040

== ENCOUNTER → 2018-04-16 | Outpatient (CLI) | payer MEDICARE ==
[~2018-04-16] MED LIST changes: +ARTIFICIAL TEA1 EACH OP; +BISCOLAX10 M1 RC; +COLACE100 M1 PO; +COMPAZINE RC; +DESENEX2% TOP; +IMODIUM A-D2 M2 PO; +INSULIN HUMA100 U/ML SQ; +LEVAQUIN 750MG750 M1 PO; +VITAMIN B-12250 MCG PO; +VITAMIN D 1001000 IU PO; +ZOFRAN ODT8 M1 PO; +ZYLOPRIM 100MG100 MG PO
== END ==
LOC: LAB 12:09
DX: E11.9 Type 2 diabetes mellitus without complications (principal)

== ENCOUNTER 2018-05-23 19:55 | Emergency (ER) | payer MEDICARE, OTHER ==
[~2018-05-23] VITALS: Ht 188 cm; Wt 82.8 kg
[~2018-05-23 19:55] MED LIST changes: -ARTIFICIAL TEA1 EACH OP; +ARTIFICIAL TEA1 EACH OU
[2018-05-23 22:21] VITALS: BP 124/90
[2018-05-23] MEDS ORDERED: ALBUTEROL2.5 MG/3 M IH (23:03)
[2018-05-23] MEDS ORDERED: BENADRYL PO (23:04)
[2018-05-23] MEDS ORDERED: CARAFATE 1GM1 G PO (23:05)
[2018-05-23] MEDS ORDERED: BRIMONIDINE 0.110 ML OP (23:05)
[2018-05-23] MEDS ORDERED: IPRATROPIUM BROM3 M1 IH (23:07)
[2018-05-23] MEDS ORDERED: FLEET ENEM1 BOT/133 RC (23:07)
[2018-05-23] MEDS ORDERED: GOOD NEIGH100 MG/52 PO (23:11)
[2018-05-23] MEDS ORDERED: LANTUS PEN100 U/ML SQ (23:11)
[2018-05-23] MEDS ORDERED: LEXAPRO20 M1 PO (23:12)
[2018-05-23] MEDS ORDERED: GOOD NEIGH1200 MG/15 PO (23:13)
[2018-05-23] MEDS ORDERED: MIRALAX17 GM PO (23:13)
[2018-05-23] MEDS ORDERED: NORCO 325 MG-51 TA1 PO (23:14)
[2018-05-23] MEDS ORDERED: PROTONIX TR40 M1 PO (23:16)
[2018-05-23] MEDS ORDERED: NOVOLOG 100U100 U/ML SQ (23:16)
[2018-05-23] MEDS ORDERED: GAS RELIEF80 MG PO (23:17)
[2018-05-23] MEDS ORDERED: ONGLYZA2.5 MG PO (23:17)
[2018-05-23] MEDS ORDERED: SYSTANE BALANCE10 M1 OU (23:18)
[2018-05-23] MEDS ORDERED: DESYREL 100MG100 MG PO (23:18)
== END 2018-05-23 22:21 | disposition home or self-care (01) ==
LOC: ED 19:55
DX: S09.90XA Unspecified injury of head, initial encounter (principal); S51.011A Laceration without foreign body of right elbow, initial encounter; S60.212A Contusion of left wrist, initial encounter; M54.2 Cervicalgia; W01.190A Fall on same level from slipping, tripping and stumbling with subsequent striking against furniture, initial encounter; Y92.129 Unspecified place in nursing home as the place of occurrence of the external cause; Z91.81 History of falling; Z79.4 Long term (current) use of insulin; Z79.899 Other long term (current) drug therapy; Z87.891 Personal history of nicotine dependence; F03.90 Unspecified dementia, unspecified severity, without behavioral disturbance, psychotic disturbance, mood disturbance, and anxiety; Z87.820 Personal history of traumatic brain injury

== ENCOUNTER → 2018-10-24 | Outpatient (CLI) | payer MEDICARE ==
[~2018-10-24] MED LIST changes: +ALBUTEROL2.5 MG/3 M IH; +BENADRYL PO; +BRIMONIDINE 0.110 ML OP; +CARAFATE 1GM1 G PO; +DESYREL 100MG100 MG PO; +FLEET ENEM1 BOT/133 RC; +GAS RELIEF80 MG PO; +GOOD NEIGH100 MG/52 PO; +GOOD NEIGH1200 MG/15 PO; +IPRATROPIUM BROM3 M1 IH; +LANTUS PEN100 U/ML SQ; +LEXAPRO20 M1 PO; +MIRALAX17 GM PO; +NORCO 325 MG-51 TA1 PO; +NOVOLOG 100U100 U/ML SQ; +PROTONIX TR40 M1 PO; +SYSTANE BALANCE10 M1 OU
== END ==
LOC: LAB 17:20
DX: Z11.2 Encounter for screening for other bacterial diseases (principal); R19.7 Diarrhea, unspecified

== ENCOUNTER → 2018-10-26 | Outpatient (CLI) | payer MEDICARE | LOC: LAB 11:25 | DX: R19.7 Diarrhea, unspecified (principal) ==

== ENCOUNTER → 2018-11-13 | Outpatient (CLI) | payer MEDICARE ==
[2018-11-13 16:55] LABS: CALCIUM 7.7 mg/dL (8.4-10.2); POTASSIUM 3.9 mmol/L (3.6-5.0)
[2018-11-13 18:08] LABS: URINE APPEARANCE HAZY; URINE COLOR YELLOW
[2018-11-13 18:09] LABS: URINE BILIRUBIN NEGATIVE (NEGATIVE); URINE BLOOD NEGATIVE (NEGATIVE); URINE GLUCOSE NEGATIVE (NEGATIVE); URINE KETONE NEGATIVE (NEGATIVE); URINE LEUKOCYTE ESTERASE NEGATIVE (NEGATIVE); URINE NITRATE NEGATIVE (NEGATIVE); URINE PROTEIN(semi-quant) TRACE mg/dL (NEGATIVE); URINE UROBILINOGEN NORMAL (NORMAL); URINE WBC 0-1 /hpf (0-3)
== END ==
LOC: LAB 16:33
PROVIDERS: Family Medicine
DX: R60.9 Edema, unspecified (principal)

== ENCOUNTER → 2018-11-21 | Outpatient (CLI) | payer MEDICARE ==
[2018-11-21 07:55] LABS: CALCIUM 7.7 mg/dL (8.4-10.2); POTASSIUM 3.5 mmol/L (3.6-5.0)
== END ==
LOC: LAB 07:27
PROVIDERS: Family Medicine
DX: E11.22 Type 2 diabetes mellitus with diabetic chronic kidney disease (principal); I12.9 Hypertensive chronic kidney disease with stage 1 through stage 4 chronic kidney disease, or unspecified chronic kidney disease; N18.3 Chronic kidney disease, stage 3 (moderate); R60.9 Edema, unspecified